=== PATIENT | male | born 1980 | race Caucasian/White ===

== ENCOUNTER 2018-07-09 00:38 | Emergency (ER) | payer OTHER ==
[2018-07-09 01:05] VITALS: BP 127/80; PULSE 71; RESP 22; TEMP 98.3; O2SAT 99
[2018-07-09] MEDS ORDERED: Hydrocodone/Acetaminophen 5 mg /300 mg Tab PO STA (01:33)
--- NOTE | 2018-07-09 02:16 | C.PDOC ---
History Of Present Illness 38-year-old male presents to the ED for evaluation of left-sided jaw pain which began 3 days ago. Patient states he took Tylenol yesterday with some improvement. Patient states his pain returned this morning and worsened by 2200 tonight. Patient took some Tylenol without significant relief. He states the pain has now progressed to the other side of his jaw, and presents to the ED for further evaluation. Patient reports history of dental cares and states he has a dentist. He denies fever, chills or recent trauma/injury to the area. Time Seen by Provider: 07/09/18 01:11 Chief Complaint (Nursing): Dental Pain History Per: Patient History/Exam Limitations: no limitations Onset/Duration Of Symptoms: Days Current Symptoms Are (Timing): Worse Quality: Positive for: "Pain" Additional History Per: Patient Past Medical History Reviewed: Historical Data, Nursing Documentation, Vital Signs Vital Signs: Last Vital Signs Temp 98.3 F 07/09/18 01:01 Pulse 71 07/09/18 01:01 Resp 22 07/09/18 01:01 BP 127/80 07/09/18 01:01 Pulse Ox 99 07/09/18 01:01 - Medical History PMH: Gastritis Denies: Chronic Kidney Disease Surgical History: No Surg Hx Family History: States: Unknown Family Hx - Social History Hx Alcohol Use: Yes Hx Substance Use: No - Immunization History Hx Tetanus Toxoid Vaccination: No Hx Influenza Vaccination: No Hx Pneumococcal Vaccination: No Review Of Systems Constitutional: Negative for: Fever, Chills, Weakness ENT: Positive for: Other (jaw pain ) Skin: Negative for: Rash Neurological: Negative for: Weakness, Numbness, Dizziness Physical Exam - Physical Exam Appears: Well, Non-toxic, No Acute Distress Skin: Normal Color, Warm, No Rash Head: Atraumatic, Tenderness (submandibular ), Swelling (mild, to left jawline ) Oral Mucosa: Moist, No Other (swelling, edema or erythema to floor of mouth ) Tongue: No Swelling Lips: Normal Appearing, No Swelling Teeth: Caries Gingiva: No Swelling, No Other (drainage ) Throat: Normal, No Drooling, No Mass Neck: Normal, Normal ROM, Supple Neurological/Psych: Oriented x3, Normal Cranial Nerves (grossly intact ) ED Course And Treatment O2 Sat by Pulse Oximetry: 99 (on RA) Pulse Ox Interpretation: Normal Medical Decision Making Medical Decision Making: Clindamycin PO, Motrin PO and Tramadol PO given. Symptoms likely indicative of a dental infection. Patient given pain medications and advised to f/u with dentist within 1-2 days for further evaluation. Disposition Counseled Patient/Family Regarding: Diagnosis, Need For Followup, Rx Given - Disposition Disposition: HOME/ ROUTINE Disposition Time: 02:16 Condition: IMPROVED Prescriptions: Clindamycin [Cleocin] 300 mg PO TID 7 Days cap traMADol [Ultram] 50 mg PO TID PRN #15 tab PRN Reason: Pain, Severe (8-10) Instructions: Dental Pain (DC) Forms: [facility] (Bengali), General Discharge Instructions - Clinical Impression Clinical Impression: Pain, dental - PA / FULL TIME STAFF INTERPRETER / Resident Statement MD/DO has reviewed & agrees with the documentation as recorded. - Scribe Statement The provider has reviewed the documentation as recorded by the Scribe (Oralia Duque) All medical record entries made by the Scribe were at my direction and personally dictated by me. I have reviewed the chart and agree that the record accurately reflects my personal performance of the history, physical exam, medical decision making, and the department course for this patient. I have also personally directed, reviewed, and agree with the discharge instructions and disposition.
== END 2018-07-09 02:29 | disposition home or self-care (01) ==
LOC: C.ER 00:38
DX: K08.89 Other specified disorders of teeth and supporting structures (principal)